=== PATIENT | female | born 1970 | race Caucasian/White ===

== ENCOUNTER 2017-04-23 13:06 | Outpatient (CLI) | payer BC ==
--- NOTE | 2017-04-23 15:44 | ULT ---
ULTRASOUND RIGHT BREAST: 04/23/17 Ultrasound of the outer right breast was performed to assess a new nodular density on mammography. A small cyst is seen at 9 o'clock which corresponds to mammogram nodule. This measures approximately 5 mm. It is anechoic and exhibits posterior enhancement. IMPRESSION: Ultrasound confirmed a small cyst at 9 o'clock corresponding to the mammogram nodule. Ultrasound fin dings are BI-RADS 2: Benign Finding(s) Routine annual screening mammography (for women over age 40). POS: ALLYSSA
--- NOTE | 2017-04-23 15:46 | MMO ---
DIAGNOSTIC RIGHT MAMMOGRAMS: 04/23/17 Diagnostic mammogram was performed to assess the nodular density in the outer right breast posterior ly. Diagnostic films confirm a new nodular density. Ultrasound shows a small cyst at 9 o'clock posterior ly which corresponds to this nodule. Recommend patient be returned to routine followup. Final BI-RADS is BI-RADS 2: Benign Finding(s) Routine annual screening mammography (for women over age 40). POS: ALLYSSA
== END 2017-04-23 13:07 | disposition home or self-care (01) ==
LOC: MAMMO 13:06
PROVIDERS: ATTEND Obstetrics & Gynecology
DX: R92.2 Inconclusive mammogram (principal); N60.01 Solitary cyst of right breast
CPT/HCPCS: G0206-RT

== ENCOUNTER 2018-05-19 13:55 | Outpatient (CLI) | payer BC | END 2018-05-19 13:56 | disposition home or self-care (01) | LOC: BICMAMMO 13:55 | PROVIDERS: ATTEND Obstetrics & Gynecology | DX: Z12.31 Encounter for screening mammogram for malignant neoplasm of breast (principal); N64.89 Other specified disorders of breast | CPT/HCPCS: 77063; 77067 ==

== ENCOUNTER 2019-03-16 16:00 | Outpatient (CLI) | payer BC | END 2019-03-16 16:01 | disposition home or self-care (01) | LOC: SLEEPLAB 16:00 | PROVIDERS: ATTEND Family Medicine | DX: G47.33 Obstructive sleep apnea (adult) (pediatric) (principal); R53.83 Other fatigue; R51 Headache; R06.83 Snoring; E66.9 Obesity, unspecified | CPT/HCPCS: 95806 ==

== ENCOUNTER 2019-04-23 19:30 | Outpatient (CLI) | payer BC | END 2019-04-23 19:31 | disposition home or self-care (01) | LOC: SLEEPLAB 19:30 | PROVIDERS: ATTEND Family Medicine | DX: G47.33 Obstructive sleep apnea (adult) (pediatric) (principal); R53.83 Other fatigue; R51 Headache; R06.83 Snoring; G47.10 Hypersomnia, unspecified; E66.9 Obesity, unspecified; Z68.31 Body mass index [BMI] 31.0-31.9, adult | CPT/HCPCS: 95811 ==

== ENCOUNTER 2020-05-24 09:27 | Outpatient (CLI) | payer BC ==
--- NOTE | 2020-05-24 12:40 | MRI ---
RIGHT KNEE MRI WITHOUT IV CONTRAST: Date: 05/24/2020 HISTORY: Pain following a twisting injury, medial meniscal tear. FINDINGS: Moderate joint effusion with minimal distention of the suprapatellar recess. No significant fluid within the gastrocnemius semimembranosus recess. No significant full thickness c artilage loss. There is evidence for a flap-type tear involving the posterior horn medial meniscus. L ateral meniscus is unremarkable. Anterior and posterior cruciate ligaments, collateral ligament compl exes, and quadriceps and patellar tendons are intact. No acute osteochondral defect. No evidence for abnormal marrow edema. IMPRESSION: Evidence for flap tear involving the posterior horn medial meniscus. Moderate amount of suprapatellar recess fluid. POS: OFF
== END 2020-05-24 09:28 | disposition home or self-care (01) ==
LOC: SCSMRI 09:27
PROVIDERS: ATTEND Orthopaedic Surgery
DX: S83.241A Other tear of medial meniscus, current injury, right knee, initial encounter (principal)

== ENCOUNTER 2020-06-25 07:10 | Outpatient (CLI) | payer BC ==
[2020-06-25 13:54] LABS: #Basophils 0.1 10x3/uL (0.0-0.2); #Eosinphils 0.1 10x3/uL (0.0-0.5); #Neutrophils 5.8 10x3/uL (1.5-8.4); %Basophils 0.6 % (0.0-2.0); %Lymphocytes 36.3 % (18.0-47.0); %Monocytes 8.8 % (0.0-10.0); %Neutrophils 52.9 % (40.0-75.0); Hemoglobin 12.8 g/dL (12.0-16.0); Mean Corpuscular HGB CONC 32.5 G/DL (32.0-36.0); Mean Corpuscular Hemoglobin 30.5 PG (27.0-33.0); Mean Corpuscular Volume 93.8 fl (80.0-100.0); Mean Platelet Volume 9.2 fl (7.4-10.4); Platelet Count 434 10x3/uL (130-400); RBC Distribution Width 13.6 % (11.5-14.5); White Blood Cell (WBC) Count 10.9 10x3/uL (4.5-11.0)
[2020-06-25 14:32] LABS: Anion Gap 17 mmol/L (10-20); BUN (Urea Nitrogen) 18 mg/dL (9.8-20.1); Calc. Creatinine Clearance 0 mL/min (70-130); Calcium 9.7 mg/dL (7.8-10.44); Carbon Dioxide 23 mmol/L (22-29); Chloride 103 mmol/L (98-107); Glucose 83 mg/dL (70-105); Potassium 4.3 mmol/L (3.5-5.1); Sodium 139 mmol/L (136-145)
[2020-06-26 09:25] LABS: SARS-CoV-2 MS2 Positive; SARS-CoV-2 N Gene Negative; SARS-CoV-2 S Gene Negative; SARS-CoV-2 by NAA Not Detected (NotDetected); SARS-CoV-2 orf1ab Negative
== END 2020-06-25 07:11 | disposition home or self-care (01) ==
LOC: LABBT 07:10
PROVIDERS: ATTEND Orthopaedic Surgery
DX: Z01.812 Encounter for preprocedural laboratory examination (principal); S83.241A Other tear of medial meniscus, current injury, right knee, initial encounter; Z20.828 Contact with and (suspected) exposure to other viral communicable diseases
CPT/HCPCS: 80048; 85025; 87635; U0003

== ENCOUNTER 2020-06-28 05:59 | Day surgery (SDC) | payer BC ==
[2020-06-28] MEDS ORDERED: Fentanyl 100 MCG/2 ML VIAL ONE (06:25)
[2020-06-28] MEDS ORDERED: PROPOFOL 20 ML ONE (06:53)
[2020-06-28] MEDS ORDERED: HYDROcodone/Acetaminophen 5/325 mg Tablet ONE (09:08)
[2020-06-28] MEDS ORDERED: Ondansetron PF 4 MG/2 ML Vial ONE (09:28)
[2020-06-28] MEDS ORDERED: Ketorolac Tromethamine 30 MG/ML VIAL ONE (09:28)
[2020-06-28] MEDS ORDERED: Metoclopramide HCl 10 MG/2 ML VIAL ONE (09:28)
[2020-06-28] MEDS ORDERED: Bupivacaine PF 0.5% 30 ML VIAL ONE (09:28)
[2020-06-28] MEDS ORDERED: PROPOFOL 200 MG/20 ML VIAL ONE (09:28)
[2020-06-28] MEDS ORDERED: Dexamethasone 20 MG/5 ML VIAL ONE (09:28)
[2020-06-28] MEDS ORDERED: Lidocaine 2% w/Epinephrine 1:200K 20 ML VIAL ONE (09:28)
[2020-06-28] MEDS ORDERED: Lidocaine 1% PF 5 ML VIAL ONE (09:28)
--- NOTE | 2020-06-28 10:58 | OP ---
DATE OF PROCEDURE: 06/28/2020 PREOPERATIVE DIAGNOSIS: Medial meniscus tear, right knee. POSTOPERATIVE DIAGNOSIS: Medial meniscus tear, right knee. ANESTHESIA: General. BLOOD LOSS: Minimal. SPECIMEN: None. DRAINS: None. COMPLICATIONS: None. 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 No loose bodies in the suprapatellar pouch. DESCRIPTION OF PROCEDURE: The scope was placed in the lateral portal. Probe was placed in the medial portal. There was quite a bit of cartilage flaking of the medial femoral condyle, just removed the loose pieces with a shaver. I then identified a very large posterior tear. This was debrided using basket forceps and smoothed using a 4.0 full-radius resector, alternating forceps and shaver preoperatively until most of the meniscus was gone and the remaining rim was stable. The knee was irrigated and drained. Sterile dressings applied. Job ID: [id number]
== END 2020-06-28 10:00 | disposition home or self-care (01) ==
LOC: SDC 05:59
PROVIDERS: ATTEND Orthopaedic Surgery
PROC: 0SBC4ZZ Excision of Right Knee Joint, Percutaneous Endoscopic Approach (ICD-10-PCS; principal; 2020-06-28)
DX: S83.241A Other tear of medial meniscus, current injury, right knee, initial encounter (principal); M94.211 Chondromalacia, right shoulder; J45.909 Unspecified asthma, uncomplicated; Z79.899 Other long term (current) drug therapy; Z87.891 Personal history of nicotine dependence; Z88.1 Allergy status to other antibiotic agents; Z88.2 Allergy status to sulfonamides
CPT/HCPCS: J0690; J1100; J1885; J2405; J2704; J2765; J3010; S0020